=== PATIENT | male | born 1930 | race Caucasian/White ===

== ENCOUNTER 2020-12-10 05:22 | Day surgery (SDC) | payer OTHER, MEDICARE ==
[2020-12-07 17:32] VITALS: BMI 20.5
[2020-12-10] MEDS ORDERED: LIDOCAINE HCL 1%, 10 MG/ML (20ML VIAL) ONE ×2 (14:23→15:06)
[2020-12-10] MEDS ORDERED: BUPIVACAINE HCL/PF 0.5% (5MG/ML) 10 ML VIAL ONE (14:23)
[2020-12-10] MEDS ORDERED: ELECTROLYTE-148 SOLN 1,000 ML IV SCH (14:30)
[2020-12-10] MEDS ORDERED: MIDAZOLAM HCL 2 MG/2 ML SINGLE DOSE VIAL ONE ×2 (14:50)
[2020-12-10] MEDS ORDERED: ceFAZolin SODIUM 1 GM VIAL IVPB ONE (14:57)
[2020-12-10] MEDS ORDERED: LIDOCAINE HCL 1%, 10 MG/ML (20ML VIAL) PNB ONE (15:04)
[2020-12-10 19:21] VITALS: TEMP 97.7
[2020-12-10 19:27] VITALS: BP 116/70; PULSE 85
[2020-12-10] MEDS ORDERED: metoPROLOL SUCCINATE 25 MG TAB.SR.24H (FP) PO SCH (22:00)
== END 2020-12-10 19:15 | disposition home or self-care (01) ==
LOC: JASU-SURG 05:22
PROVIDERS: ATTEND Urology
PROC: 0T9B00Z Drainage of Bladder with Drainage Device, Open Approach (ICD-10-PCS; principal; 2020-12-10 13:30)
DX: R33.9 Retention of urine, unspecified (principal); N40.0 Benign prostatic hyperplasia without lower urinary tract symptoms; I48.20 Chronic atrial fibrillation, unspecified; I50.20 Unspecified systolic (congestive) heart failure; I11.0 Hypertensive heart disease with heart failure; I25.10 Atherosclerotic heart disease of native coronary artery without angina pectoris; Z95.5 Presence of coronary angioplasty implant and graft
CPT/HCPCS: 94760

== ENCOUNTER 2020-12-11 01:23 | Emergency (ER) | payer OTHER, MEDICARE ==
[2020-12-11 02:03] VITALS: BMI 20.5
[2020-12-11 04:09] LABS: BASO % 0.7 % (0-2.0); EOS % 0.2 % (0-4.5); HEMOGLOBIN 9.9 GM/dL (11.7-16.9); LYMPH % 4.2 % (8-40); MCH 22.1 pg (25.7-33.7); MEAN CELL VOLUME 69.1 fl (80-96); MEAN PLT VOLUME 9.6 fl (7.5-11.1); MONO % 6.1 % (3.8-10.2); NEUT % 88.8 % (42.8-82.8); PLATELET COUNT 219 10^3/uL (134-434); RBC 4.49 M/mm3 (4.00-5.60); RDW 17.8 % (11.9-15.9); WHITE BLOOD COUNT 10.6 K/mm3 (4.0-10.0)
[2020-12-11 04:26] LABS: INR 1.35 (0.83-1.09); PROTHROMBIN TIME (PATIENT) 16.2 SEC (9.7-13.0)
[2020-12-11 04:30] LABS: CALCIUM 8.5 mg/dL (8.5-10.1)
[2020-12-11 04:31] LABS: ALBUMIN 2.8 g/dl (3.4-5.0); BLOOD UREA NITROGEN 33.2 mg/dL (7-18)
[2020-12-11 04:34] LABS: CREATININE 0.9 mg/dL (0.55-1.3)
[2020-12-11 04:35] LABS: BILIRUBIN,TOTAL 1.2 mg/dL (0.2-1); TOT PROT 6.8 g/dl (6.4-8.2)
[2020-12-11 05:46] VITALS: BP 118/92; PULSE 119; TEMP 98.9
== END 2020-12-11 06:02 | disposition home or self-care (01) ==
LOC: JER 01:23
DX: Z46.6 Encounter for fitting and adjustment of urinary device (principal)
CPT/HCPCS: 36415; 80053; 85025; 85610; 99283-25